=== PATIENT | female | born 1960 | race Caucasian/White ===

== ENCOUNTER 2024-08-04 21:24 | Emergency (ER) | payer BC ==
[2024-08-04] MEDS ORDERED: Acetaminophen 325 MG TAB ONE (22:51)
[2024-08-04] MEDS ORDERED: Methocarbamol 500 MG TAB ONE (22:52)
[2024-08-04] MEDS ORDERED: Lidocaine 4% Patch ONE (22:52)
== END 2024-08-05 00:14 | disposition home or self-care (01) ==
LOC: CSHERS 21:24
DX: M54.2 Cervicalgia (principal); R51.9 Headache, unspecified; K21.9 Gastro-esophageal reflux disease without esophagitis; Z79.899 Other long term (current) drug therapy; Z96.643 Presence of artificial hip joint, bilateral
CPT/HCPCS: 70450; 72125

== ENCOUNTER 2024-09-01 12:41 | Outpatient (CLI) | payer BC | END 2024-09-01 12:42 | disposition home or self-care (01) | LOC: CSHMAMMO 12:41 | DX: Z12.31 Encounter for screening mammogram for malignant neoplasm of breast (principal); Z98.890 Other specified postprocedural states | CPT/HCPCS: 77063; 77067 ==

== ENCOUNTER 2025-09-07 13:47 | Outpatient (CLI) | payer MEDICARE, OTHER | END 2025-09-07 13:48 | disposition home or self-care (01) | LOC: CSHMAMMO 13:47 | DX: Z12.31 Encounter for screening mammogram for malignant neoplasm of breast (principal); Z91.89 Other specified personal risk factors, not elsewhere classified; Z98.890 Other specified postprocedural states | CPT/HCPCS: 77063; 77067 ==